=== PATIENT | male | born 1970 | race Caucasian/White ===

== ENCOUNTER 2016-09-19 12:12 | Emergency (ER) | payer OTHER ==
[~2016-09-19] VITALS: Ht 188 cm; Wt 106.6 kg
--- NOTE | 2016-09-19 12:53 | ED UPPER/LOWER EXTREMITY COMPL ---
History of Present Illness General Chief Complaint: Upper Extremity Problem Stated Complaint: PAIN IN RIGHT ARM, TRAVELING TO AXILLARY AREA Source: patient Exam Limitations: no limitations Vital Signs & Intake/Output Vital Signs & Intake/Output Vital Signs Date Time Temp Pulse Resp B/P Pulse O2 O2 Flow FiO2 Ox Delivery Rate 09/19 1429 98.2 60 18 112/61 98 Room Air 09/19 1224 97.9 70 18 137/82 98 Room Air Allergies Coded Allergies: No Known Allergies (09/19/16) Reconcile Medications Oxycodone HCl/Acetaminophen (Percocet 5-325 MG Tablet) 5 MG-325 MG TABLET 1 TAB PO BID PRN PAIN Triage Note: RECEIVED 46 YO MALE WITH HX OF CARDIAC CATH 07/24 AND CHOLECYSECTOMY 08/25. PT REPORTS RIGHT AXILLARY PAIN AND R ARM PAIN, STARTED ONE MONTH AGO. D-DIMER WAS ELEVATED AT [facility] ONE WEEK AGO. PT REPORTS RIGHT EXILLA AREA PAINFUL AND FEELS LIKE IT IS ON FIRE. Triage Nurses Notes Reviewed? yes Onset: Gradual Duration: getting worse Timing: recent history Severity: severe Severity Numbers: 8 HPI: Patient is a 46-year-old male with a past medical history of gout who presents to emergency room stating that on 06/24/2016 patient had a left ankle fracture due to a fall in which he states that 2 days later he began having complaints of chest pain abdominal pain diaphoresis in which he presented to [facility] and had unremarkable findings in the emergency room and sent home. Patient returned to [facility] and [facility] for similar complaints of abdominal pain diaphoresis nausea left arm pain in which she was admitted for rule out ACS and was admitted for observation with unremarkable findings. Patient does state that over the summer he had a cardiac stress test performed by transport driver Dr. SHETTY with unremarkable findings. Patient then followed up and had endoscopy with unremarkable findings. Patient states that on August 01 his transport driver advised patient to receive a cardiac catheter which was performed to patient's right upper extremity and he states that these findings were unremarkable however patient states that he is having right arm pain since this procedure. Patient then had a HIDA scan performed on August 08 and on August 14 had a laparoscopic cholecystectomy performed by surgeon Dr. Dawson. Patient was evaluated 6 days ago at [facility] for concerns of abdominal pain and chest pain which CT angiogram ruled out PULMONARY embolism and was discharged safely home. This week on Wednesday patient follow up with his cartography professor and had CT of his abdomen performed with unremarkable findings and patient states that his abdominal pain and GI symptoms have improved and can tolerate by mouth last bowel movement was today no blood no melena noted. Patient presents to emergency room TODAY with worsening right upper extremity pain that initially after his catheterization began in his forearm and now is radiating to his humerus right shoulder and down his right axilla region. Patient states that he is known to have decreased pulselessness in his right arm however no official evaluation has been performed for the symptoms. Patient denies any right arm paresthesia swelling chest pain arm shortness of breath hemoptysis or leg swelling (LUCIO GEORGE) Past History Travel History Traveled to [place] past 21 day No Medical History Any Pertinent Medical History? see below for history Neurological: NONE EENT: NONE Cardiovascular: HYPERTENSION - NOT ON MED CARIAC CATH 07/24 Surgical History Surgical History: cholecystectomy Psychosocial History What is your primary language Zimbabwean Tobacco Use: Never used Family History Hx Contributory? No (LUCIO GEORGE) Review of Systems Review of Systems Constitutional: Reports: no symptoms. EENTM: Reports: no symptoms. Respiratory: Reports: see HPI. Cardiovascular: Reports: see HPI. Gastrointestinal/Abdominal: Reports: no symptoms. Genitourinary: Reports: no symptoms. Musculoskeletal: Reports: see HPI, muscle pain. Skin: Reports: no symptoms. Neurological/Psychological: Reports: no symptoms. Hematologic/Endocrine: Reports: no symptoms. Immunological: Reports: no symptoms. All Other Systems: Reviewed and Negative (LUCIO GEORGE) Physical Exam Physical Exam General Appearance: no apparent distress Neurologic/Tendon: normal sensation, normal motor functions, normal tendon functions, responds to pain Comments: Well-developed well-nourished person in no acute distress HEENT: Normal EENT exam, Neck: Supple, no lymphadenopathy, normal range of motion without pain or tenderness Back: Nontender, no CVA tenderness. Cardiovascular: Regular rate and rhythms no murmurs rubs or gallops, normal JVP Respiratory: Chest nontender. No respiratory distress.breath sounds clear to auscultation bilaterally Abdomen: Soft, nontender nondistended, no appreciable organomegaly. Normal bowel sounds. No ascites Extremity: No edema, no calf tenderness to palpation, Faint right radial pulse noted Right upper extremity noted generalized point tenderness normal inspection no swelling dermatomes intact Mild distal pallor to extremities and fingers and mild decreased temperature compared bilaterally Neuro: Alert oriented x3, motor sensory normal, Skin: No appreciable rash on exposed skin, skin is warm and dry. Psych: Mood and affect is normal, memory and judgment is normal. (CHRISTY YEUNG,LUCIO) Progress Differential Diagnosis: arterial insufficiency, cellulitis, CHF, compartment syndrome, contusion, dislocation, DVT, fracture, gout, septic arthritis, sprain, tendon injury Plan of Care: Orders Procedure Date/time Status Add-on Test (ER Only) 09/19 1455 Active D-DIMER 09/19 1330 Complete TROPONIN LEVEL 09/19 1320 Complete PARTIAL THROMBOPLASTIN TIME 09/19 132 Complete PROTHROMBIN TIME 09/19 132 Complete COMPREHENSIVE METABOLIC PANEL 09/19 132 Complete CBC WITHOUT DIFFERENTIAL 09/19 1319 Complete EKG 09/19 132 Active Laboratory Tests 09/19/16 1330: Anion Gap 15, Estimated GFR > 60, BUN/Creatinine Ratio 15.0, Glucose 95, Calcium 9.7, Total Bilirubin 1.0, AST 28, ALT 51, Alkaline Phosphatase 77, Troponin I < 0.01, Total Protein 7.5, Albumin 4.8, Globulin 2.7, Albumin/Globulin Ratio 1.8, PT 12.3, INR 1.17, APTT 34, D-Dimer 678 H, CBC w Diff NO MAN DIFF REQ, RBC 5.14 , MCV 90.4, MCH 29.8, RDW 15.9 H, MPV 9.8, Gran % 75.6 H, Lymphocytes % 17.3 L, Monocytes % 5.9, Eosinophils % 0.8, Basophils % 0.4, Absolute Granulocytes 4.2, Absolute Lymphocytes 1.0 L, Absolute Monocytes 0.3, Absolute Eosinophils 0 , Absolute Basophils 0, PUBS MCHC 33.0 09/19/16 1321: D-Dimer Cancelled Patient currently is in no apparent distress and declined pain medications when offered. Patient does have concerns of thrombus of the right upper extremity however was noted by peripheral Doppler the patient had faint pulses to the radial aspect heard Patient's d-dimer was elevated however was noted by me through radiology that a bolus for patient's CT angiogram could not be evaluated for patient's right upper extremity and chest however patient does not present with any cardiovascular or rest or complaints and is complaining of right arm pain with suspicion of thrombus Doppler ruled out DVT of right upper extremity Discussed CT angiogram results with Dr. Nails who was concerned of radial artery diminutive examination to the right forearm. I discussed CT scan results with the patient who is aware I also discussed patient and CT scan results with vascular surgeon Dr. PIMENTEL who due to patient having a diminutive patent radial pulse and no concerns of acute arterial occlusion the patient can be safely discharged and to follow up in office next week and he also advised patient to follow up with plastic surgeon for concerns of right arm pain most likely nerve related due to patient' s recent cardiac catheterization. Upon discharge patient was in no apparent distress and he had no questions Discussed patient with who agrees with disposition plan Patient was given CT scan results (CHRISTY YEUNG,LUCIO) Diagnostic Imaging: Viewed by Me: CT Scan, Ultrasound. Radiology Impression: SEE COMMENTS Initial ED EK BPM NORMAL SINUS RHYTHM Comments: PATIENT: DRE CORNELIUS PRESENT AGE: 46 PATIENT ACCOUNT NO: [id number] : 69 LOCATION: [facility] ORDERING PHYSICIAN: LUCIO YEUNG SERVICE DATE: 09/19/16 EXAM TYPE: CAT - CT UPPER EXT ANGIOGRAM EXAMINATION: CT ANGIOGRAM UPPER EXTREMITY, RIGHT CLINICAL INFORMATION: Right arm pain after catheterization. Pain localized to axilla. COMPARISON: Same day right upper extremity DVT study. TECHNIQUE: Axial images were obtained through the right upper extremity and upper right thorax after the administration of 95 mL Optiray 350 IV contrast. Reformatted coronal and sagittal images in addition to MIP images were provided for interpretation. DLP: 577 mGy-cm FINDINGS: Visualized portions of the thoracic aorta are normal in caliber. Normal three-vessel aortic arch. Visualized portions of the bilateral common carotid arteries, bilateral vertebral arteries and bilateral subclavian arteries are widely patent. The right axillary artery and right brachial artery are well opacified and widely patent. The right ulnar artery is well opacified and patent to at least the level of the wrist. The interosseous artery appears well-opacified and patent. The proximal right radial artery is diminutive but patent. There is loss of contrast enhancement within the radial artery within the proximal to mid forearm, possibly representing occlusion. Visualized portions of the pulmonary arteries are well opacified. No gross abnormality identified within the right axilla. No right axillary lymphadenopathy. Visualized lungs are well aerated without focal consolidation. No acute osseous abnormality. IMPRESSION: Normal deep arterial system of the right upper extremity with the exception of the right radial artery. The proximal right radial artery is diminutive but patent, however, there is loss of contrast enhancement within the radial artery within the proximal to mid forearm. This is a nonspecific finding and may be secondary to poor resolution of a diminutive artery, however, an obstructing etiology (i.e. embolus) is also within the differential. Correlation with clinical history and physical examination recommended. This Critical Result was discussed with GAMAL Jarrell at 4:08 PM on September 19, 2016 and it was ascertained that the content and urgency of the report was understood at the time of direct communication. PATIENT: DRE CORNELIUS PRESENT AGE: 46 PATIENT ACCOUNT NO: [id number] : 69 LOCATION: [facility] ORDERING PHYSICIAN: LUCIO YEUNG SERVICE DATE: 09/19/16 EXAM TYPE: US - US-UNILATERAL VENOUS DOPPLER EXAMINATION: DOPPLER VENOUS ULTRASOUND UPPER EXTREMITY, RIGHT CLINICAL INFORMATION: Right arm pain. COMPARISON: None. TECHNIQUE: Grayscale, Doppler and spectral analysis of the upper extremity and neck was performed. FINDINGS: There is no evidence for a deep venous thrombosis within the visualized upper extremity and neck veins. There is normal flow, compression and augmentation. IMPRESSION: Unremarkable examination. Specifically, no evidence for DVT. (LUCIO GEORGE) Departure Departure Disposition: HOME OR SELF CARE Condition: Stable Clinical Impression Primary Impression: Right arm pain Secondary Impressions: Radial artery injury Referrals: CARLOS XIE,RACHID (PCP/Family) LASHA XIE,SARAH PIMENTEL MD,EZEQUIEL Additional Instructions: As discussed on Wednesday please call to establish vascular surgeon Dr. Pimentel for further evaluation treatment, also please follow-up in establish plastic surgeon Dr. Camarillo for your right arm pain. Begin the prescription of Percocet for breakthrough pain relief. Prescription is waiting at your pharmacy. If symptoms worsen return to emergency room Departure Forms: Customer Survey General Discharge Information Prescriptions: Current Visit Scripts Oxycodone HCl/Acetaminophen (Percocet 5-325 MG Tablet) 1 TAB PO BID PRN PAIN #15 TAB (LUCIO GEORGE) PA/SOFT HAT BINDER Co-Sign Statement Statement: ED Attending supervision documentation- [] I saw and evaluated the patient. I have also reviewed all the pertinent lab results and diagnostic results. I agree with the findings and the plan of care as documented in the PA's/SOFT HAT BINDER's documentation. x I have reviewed the ED Record and agree with the PA's/SOFT HAT BINDER's documentation. [] Additions or exceptions (if any) to the PAs/SOFT HAT BINDER's note and plan are summarized below: [] (MULUGETA XIE,RAÚL)
[2016-09-19 14:06] LABS: ABSOLUTE BASOPHIL COUNT 0 /CUMM (0.0-0.2); ABSOLUTE EOSINOPHIL COUNT 0 /CUMM (0.0-0.7); ABSOLUTE GRANULOCYTE CT 4.2 /CUMM (1.4-6.5); ABSOLUTE MONOCYTE COUNT 0.3 /CUMM (0.10-0.60); BASOPHIL % 0.4 % (0.0-2.0); EOSINOPHIL % 0.8 % (0-5); GRANULOCYTE % 75.6 % (42.2-75.2); HEMATOCRIT 46.5 % (42-52); MEAN CORPUSCULAR HGB 29.8 PG (27.0-31.0); MEAN CORPUSCULAR VOLUME 90.4 FL (80.0-94.0); MEAN PLATELET VOLUME 9.8 FL (7.4-10.4); PLATELET COUNT 126 /CUMM (130-400); PT 12.3 SEC (9.4-12.5); PTT 34 SEC (25-37); RBC DISTRIBUTION WIDTH 15.9 % (11.5-14.5); RED BLOOD CELL CT 5.14 /CUMM (4.70-6.10); WHITE BLOOD CELL COUNT 5.6 /CUMM (4.8-10.8)
--- NOTE | 2016-09-19 14:34 | ULTRASOUND REPORT ---
EXAMINATION: DOPPLER VENOUS ULTRASOUND UPPER EXTREMITY, RIGHT CLINICAL INFORMATION: Right arm pain. COMPARISON: None. TECHNIQUE: Grayscale, Doppler and spectral analysis of the upper extremity and neck was performed. FINDINGS: There is no evidence for a deep venous thrombosis within the visualized upper extremity and neck veins. There is normal flow, compression and augmentation. IMPRESSION: Unremarkable examination. Specifically, no evidence for DVT.
--- NOTE | 2016-09-19 16:12 | CT SCAN REPORT ---
EXAMINATION: CT ANGIOGRAM UPPER EXTREMITY, RIGHT CLINICAL INFORMATION: Right arm pain after catheterization. Pain localized to axilla. COMPARISON: Same day right upper extremity DVT study. TECHNIQUE: Axial images were obtained through the right upper extremity and upper right thorax after the administration of 95 mL Optiray 350 IV contrast. Reformatted coronal and sagittal images in addition to MIP images were provided for interpretation. DLP: 577 mGy-cm FINDINGS: Visualized portions of the thoracic aorta are normal in caliber. Normal three-vessel aortic arch. Visualized portions of the bilateral common carotid arteries, bilateral vertebral arteries and bilateral subclavian arteries are widely patent. The right axillary artery and right brachial artery are well opacified and widely patent. The right ulnar artery is well opacified and patent to at least the level of the wrist. The interosseous artery appears well-opacified and patent. The proximal right radial artery is diminutive but patent. There is loss of contrast enhancement within the radial artery within the proximal to mid forearm, possibly representing occlusion. Visualized portions of the pulmonary arteries are well opacified. No gross abnormality identified within the right axilla. No right axillary lymphadenopathy. Visualized lungs are well aerated without focal consolidation. No acute osseous abnormality. IMPRESSION: Normal deep arterial system of the right upper extremity with the exception of the right radial artery. The proximal right radial artery is diminutive but patent, however, there is loss of contrast enhancement within the radial artery within the proximal to mid forearm. This is a nonspecific finding and may be secondary to poor resolution of a diminutive artery, however, an obstructing etiology (i.e. embolus) is also within the differential. Correlation with clinical history and physical examination recommended. This Critical Result was discussed with GAMAL Jarrell at 4:08 PM on September 19, 2016 and it was ascertained that the content and urgency of the report was understood at the time of direct communication.
[2016-09-19] MEDS ORDERED: PERCOCET 5-3251 EACH PO (16:54)
[2016-09-19 17:30] VITALS: BP 118/72
== END 2016-09-19 17:44 ==
LOC: ERH 12:12
PROVIDERS: Physician Assistant
DX: S55.101A Unspecified injury of radial artery at forearm level, right arm, initial encounter (principal)
CPT/HCPCS: 93005; 93010

== ENCOUNTER 2017-12-12 09:09 | Emergency (ER) | payer OTHER ==
[~2017-12-12] VITALS: Ht 188 cm; Wt 116.3 kg
[~2017-12-12 09:09] MED LIST: PERCOCET 5-3251 EACH PO
--- NOTE | 2017-12-12 09:49 | ED GI/GU/ABDOMINAL COMPLAINT ---
History of Present Illness General Chief Complaint: General Adult Stated Complaint: SWELLING TO SCROTUM/TESTICALS S/P CARDIAC CATH Source: patient, old records Exam Limitations: no limitations Vital Signs & Intake/Output Vital Signs & Intake/Output Vital Signs Date Time Temp Pulse Resp B/P B/P Pulse O2 O2 Flow FiO2 Mean Ox Delivery Rate 12/12 1219 98.8 56 20 106/56 97 Room Air 12/12 1048 Room Air Room Air 12/12 0917 97.4 75 16 106/70 98 Room Air Allergies Coded Allergies: No Known Allergies (09/19/16) Reconcile Medications Colchicine 0.6 MG TABLET 1 TAB PO DAILY GOUT Oxycodone HCl/Acetaminophen (Percocet 5-325 MG Tablet) 5 MG-325 MG TABLET 1 TAB PO BID PRN PAIN Triage Note: 47 Y/O MALE C/O SWELLING TO R GROIN AND R TESTICLE/SCROTUM S/P CARDIAC CATH. STATES HE HAS HAD 2 ULTRASOUNDS FOR SAME AND WAS TOLD IT WAS A HERNIA; THEN SAW SURGEON WHO STATES IT WAS "CATH TRAUMA" AND WAS REFERRED TO UROLOGY. UROLOGIST STATED IT WAS EPIDYDYMITIS AND PRESCRIBED CIPRO WEDNESDAY, WHICH PT HAS BEEN TAKING SINCE. PT WOKE TODAY WITH REDNESS AND SWELLING R ELBOW - NO KNOWN TRAUMA TO THAT AREA. PT NOW CONCERNED ABOUT INFECTION IN BLOOD. AFEBRILE. Triage Nurses Notes Reviewed? yes HPI: 47M PMH CAD s/p 3 stents in RCA placed in October 2017, gout, presenting with several weeks of right inguinal and testicular pain. Patient had his cath in October, and since then has had progressive ecchymoses of his right testicle with swelling and pain, swelling and a painful lump in his right inguinal canal. He has had 2 ultrasounds of the area since, diagnosed with a hernia once, saw a surgeon who said no intervention necessary, referred to a urologist who diagnosed him with orchitis and epidydimitis and placed him on Cipro, with no improvement to the area. He has difficulty walking due to the pain. He denies any chest pain, palpitations, SOB, lightheadedness, abdominal pain, diarrhea, dysuria, headache, hematuria. He also reports one day of severe right elbow pain, swelling, and erythema. He is able to move the elbow but touching it is exquisitely painful. He has no trauma to the area and no recent cuts or incisions. He does have a history of gout and is on Allopurinol, no gouty attacks in 2 years and they usually occur in his toes and once in his right 2nd MCP. Past History Travel History Traveled to [place] past 21 day No Medical History Any Pertinent Medical History? see below for history Neurological: NONE EENT: NONE Cardiovascular: HYPERTENSION - NOT ON MED CARIAC CATH 07/24 Respiratory: NONE Gastrointestinal: NONE Hepatic: NONE Renal: NONE Musculoskeletal: NONE Psychiatric: NONE Endocrine: NONE Blood Disorders: NONE Cancer(s): NONE SUPERINTENDENT METER TESTS/Reproductive: NONE Surgical History Surgical History: cholecystectomy Psychosocial History What is your primary language Djiboutian Tobacco Use: Never used Family History Hx Contributory? No Review of Systems Review of Systems Constitutional: Reports: no symptoms. EENTM: Reports: no symptoms. Respiratory: Reports: no symptoms. Cardiovascular: Reports: no symptoms. GI: Reports: no symptoms. Genitourinary: Reports: no symptoms. Musculoskeletal: Reports: no symptoms. Skin: Reports: no symptoms. Neurological/Psychological: Reports: no symptoms. Hematologic/Endocrine: Reports: no symptoms. Immunologic/Allergic: Reports: no symptoms. All Other Systems: Reviewed and Negative Physical Exam Physical Exam General Appearance: well developed/nourished, no apparent distress Head: atraumatic, normal appearance Eyes: Bilateral: normal appearance. Ears, Nose, Throat, Mouth: hearing grossly normal, moist mucous membrane Neck: normal inspection, full range of motion Respiratory: normal breath sounds, no respiratory distress Cardiovascular: regular rate/rhythm Peripheral Pulses: 2+ dorsalis pedis (R), 2+ dorsalis pedis (L) Gastrointestinal: soft, non-tender Rectal: deferred Male Genitals: right inguinal swelling and tenderness, right testicular tenderness, right scrotal swelling and ecchymosis Back: normal inspection, normal range of motion Extremities: normal range of motion Neurologic/Psych: awake, alert, oriented x 3, normal mood/affect Skin: right elbow swelling, erythema, tenderness with full ROM Core Measures ACS in differential dx? No Sepsis Present: No Sepsis Focused Exam Completed? No Progress Differential Diagnosis: AAA, AMI, appendicitis, biliary colic, bowel obstruction , colon cancer, cholecystitis, diverticulitis, epididymitis, esophageal varices, gastritis, hepatitis, hernia, hemorrhoids, ischemic bowel, inflamm bowel dis, Eva-Girish tear, orchitis, pancreatitis, prostatitis, peptic ulcer, PUD/GERD, perforated viscous, pyelonephritis, SBO, STD, testicular torsion, ureterolithiasis, urinary retention, urethritis, UTI/pyelo Plan of Care: Orders Procedure Date/time Status CULTURE,BODY FLUID 12/12 1000 Active C-REACTIVE PROTEIN 12/12 956 Complete PARTIAL THROMBOPLASTIN TIME 12/12 953 Complete PROTHROMBIN TIME 12/12 953 Complete CULTURE,BODY FLUID 12/12 952 Active BODY FLUID TOTAL PROTEIN 12/12 952 Active BODY FLUID LDH 12/12 952 Active BODY FLUID CELL COUNT 12/12 952 Active BODY FLUID GLUCOSE 12/12 952 Active BLOOD CULTURE 12/12 946 Active URIC ACID 12/12 946 Complete HIGH SENSITIVITY CRP 12/12 946 Complete WESTERGREN SED RATE 12/12 946 Complete COMPREHENSIVE METABOLIC PANEL 12/12 946 Complete CBC WITHOUT DIFFERENTIAL 12/[address] RUNOFF ANGIOGRAM 12/12 946 Active Laboratory Tests 12/12/17 0957: Anion Gap 14, Estimated GFR > 60, BUN/Creatinine Ratio 18.0, Glucose 113 H, Uric Acid 4.0, Calcium 9.2, Total Bilirubin 1.4 H, AST 21, ALT 46, Alkaline Phosphatase 105, C-Reactive Prot, Quant 2.7 H, C-React Prot High Sens > 15.0 H , Total Protein 7.3, Albumin 4.4, Globulin 2.9, Albumin/Globulin Ratio 1.5, PT 12.8 H, INR 1.17, APTT 29, CBC w Diff NO MAN DIFF REQ, RBC 4.75, MCV 88.9, MCH 28.7, MCHC 32.2 L, RDW 14.5, MPV 8.2, Gran % 76.6 H, Lymphocytes % 14.4 L, Monocytes % 8.5, Eosinophils % 0.3, Basophils % 0.2, Absolute Granulocytes 5.0, Absolute Lymphocytes 0.9 L, Absolute Monocytes 0.6, Absolute Eosinophils 0, Absolute Basophils 0, ESR Westergren 35 H Microbiology 12/12 1043 BLOOD: Blood Culture - RECD 12/12 1000 BODY FLUID: Body Fluid Culture - ORD 12/12 1000 BODY FLUID: Gram Stain - ORD 12/12 956 BLOOD: Blood Culture - RECD 12/12 952 BODY FLUID: Body Fluid Culture - ORD 12/12 952 BODY FLUID: Gram Stain - ORD Initial ED EKG: none Departure Departure Disposition: HOME OR SELF CARE Condition: Stable Clinical Impression Primary Impression: Scrotal hematoma Secondary Impressions: Gout of right elbow, Groin hematoma Referrals: Maia Jackson MD (PCP/Family) Additional Instructions: Follow up with your PCP. Follow up with your director of consulting services for your swelling. You can use your sling for support. Take Colchicine a few times a day, stop if you have diarrhea. Return to ER if new or worsening symptoms. Departure Forms: Customer Survey General Discharge Information Prescriptions: Current Visit Scripts Colchicine 1 TAB PO DAILY #30 TAB
[2017-12-12 10:18] LABS: ABSOLUTE BASOPHIL COUNT 0 /CUMM (0.0-0.2); ABSOLUTE EOSINOPHIL COUNT 0 /CUMM (0.0-0.7); ABSOLUTE LYMPH COUNT 0.9 /CUMM (1.2-3.4); ABSOLUTE MONOCYTE COUNT 0.6 /CUMM (0.10-0.60); BASOPHIL % 0.2 % (0.0-2.0); EOSINOPHIL % 0.3 % (0-5); GRANULOCYTE % 76.6 % (42.2-75.2); HEMATOCRIT 42.3 % (42-52); MEAN CORPUSCULAR HGB 28.7 PG (27.0-31.0); MEAN CORPUSCULAR HGB CONC 32.2 G/DL (33.0-37.0); MEAN CORPUSCULAR VOLUME 88.9 FL (80.0-94.0); MEAN PLATELET VOLUME 8.2 FL (7.4-10.4); PLATELET COUNT 186 /CUMM (130-400); RBC DISTRIBUTION WIDTH 14.5 % (11.5-14.5); RED BLOOD CELL CT 4.75 /CUMM (4.70-6.10); WHITE BLOOD CELL COUNT 6.5 /CUMM (4.8-10.8)
[2017-12-12 10:24] LABS: PT 12.8 SEC (9.4-12.5); PTT 29 SEC (25-37)
--- NOTE | 2017-12-12 10:43 | RADIOLOGY REPORT ---
EXAMINATION: XR ELBOW, RIGHT CLINICAL INFORMATION: Right elbow swelling, tenderness, erythema. Presumptive diagnosis: Septic arthritis versus gouty attack. COMPARISON: None TECHNIQUE: AP and lateral views of the right elbow. FINDINGS: There is no fracture, malalignment, or joint effusion. There are no degenerative arthritic changes or erosions. There is a small enthesophyte at the triceps insertion site on the olecranon process. There is moderate soft tissue swelling posterior to the olecranon process. This is nonspecific but olecranon bursitis is certainly a consideration. IMPRESSION: Nonspecific soft tissue swelling over the olecranon process. Consider olecranon bursitis. No other abnormalities.
[2017-12-12] MEDS ORDERED: COLCHICINE0.6 M2 PO (13:04)
[2017-12-12 13:18] VITALS: BP 116/63
--- NOTE | 2017-12-12 14:41 | CT SCAN REPORT ---
STUDY PERFORMED: CTA OF THE ABDOMEN, PELVIS AND LOWER EXTREMITY RUNOFF WITH CONTRAST INTERPRETING VASCULAR \T\ INTERVENTIONAL RADIOLOGIST: Otilia Rivera M.D., Ph.D. HISTORY: Recent catheterization via femoral access with pain and swelling. TECHNIQUE: Routine abdominal aorta and lower extremity runoff CTA protocol with contrast was performed. 125 mL of OptiRay 350 was administered. Images were evaluated on independent dedicated 3-D workstation and 3-D images were reconstructed with concurrent radiologist supervision and subsequently interpreted. TOTAL DLP: 1406.31 mGy-cm COMPARISON: None FINDINGS: VASCULAR: 1. Mesenteric Arteries:The celiac axis, superior mesenteric artery and inferior mesenteric artery are patent. 2. Renal Arteries: Single right renal artery is widely patent. There are 2 left renal arteries which are also widely patent. 3. Infrarenal Abdominal Aorta: Unremarkable. 4. Right Lower Extremity Arterial Perfusion: No evidence of aneurysm, dissection or stenosis. Three-vessel runoff is seen. The anterior tibial artery becomes diminutive and possibly partially calcified as it tracks anteriorly to the dorsalis pedis origin. Contrast opacification is difficult to assess due to presumed calcified atherosclerotic disease. The contrast bolus weakens by the time it reaches the toes and perfusion to the toes cannot be assessed. 5. Left Lower Extremity Arterial Perfusion: No evidence of aneurysm, dissection or stenosis. Three-vessel runoff is seen. The anterior tibial artery gives rise to the dorsalis pedis artery. Contrast opacification is difficult to assess to the toes due to weak contrast bolus at that level. NONVASCULAR: LUNG BASES: Minimal dependent changes. LIVER, GALLBLADDER, AND BILIARY TREE: The liver is normal in size, shape, and attenuation. No focal hepatic lesion or biliary ductal dilatation is present. The gallbladder is surgically absent. PANCREAS: Unremarkable. SPLEEN: Unremarkable. ADRENAL GLANDS: Unremarkable. KIDNEYS AND URETERS: The kidneys are normal in size, shape, and attenuation. No hydronephrosis, hydroureter, or calculi seen. No perinephric stranding. BLADDER: Unremarkable. GASTROINTESTINAL TRACT: The small and large bowel are unremarkable. The appendix is unremarkable. ABDOMINAL WALL: Induration of the soft tissues superficial to the right common femoral artery which extends into the spermatic cord. There is a small amount of fluid tracking into the right hemiscrotum as well. LYMPH NODES: No evidence of lymphadenopathy within the abdomen or pelvis by CT criteria. PELVIC VISCERA: Unremarkable. OSSEOUS STRUCTURES: Unremarkable. IMPRESSION: 1. Small right groin hematoma with a small amount of fluid tracking along the spermatocord and into the right hemiscrotum. No evidence of pseudoaneurysm or active extravasation. 2. Three-vessel runoff bilaterally. The contrast bolus weakens at the level of the toes and cannot be assessed. The right anterior tibial artery is diminutive and poorly assessed beyond the ankle. 3. Cholecystectomy.
[2018-02-25] MEDS ORDERED: ASPIRIN EC81 M1 PO (21:26)
[2018-02-25] MEDS ORDERED: LOPRESSOR50 M1 PO (21:27)
[2018-02-25] MEDS ORDERED: CLOPIDOGREL75 M1 PO (21:29)
[2018-02-25] MEDS ORDERED: ALLOPURINOL300 M1 PO (21:29)
[2018-02-25] MEDS ORDERED: COZAAR100 M1 PO (21:29)
[2018-02-25] MEDS ORDERED: CRESTOR40 M2 PO (21:30)
[2018-02-25] MEDS ORDERED: NITROGLYCERIN0.4 M1 SL (21:30)
[2018-02-25] MEDS ORDERED: CLONAZEPAM0.5 M2 PO (21:35)
[2018-02-26] MEDS ORDERED: NITROGLYCERIN0.4 M1 SL (18:21)
== END 2017-12-12 13:19 ==
LOC: ERH 09:09
PROVIDERS: Internal Medicine
DX: S30.22XA Contusion of scrotum and testes, initial encounter (principal); S30.1XXA Contusion of abdominal wall, initial encounter; M10.9 Gout, unspecified; X58.XXXA Exposure to other specified factors, initial encounter; Y92.9 Unspecified place or not applicable; Y93.9 Activity, unspecified
CPT/HCPCS: 87075; 73070-RT; 87040